=== PATIENT | female | born 1945 | race Caucasian/White ===

== ENCOUNTER 2018-08-03 08:32 | Day surgery (SDC) | payer MEDICARE ==
[~2018-08-03] VITALS: Ht 154.9 cm; Wt 49.4 kg
[~2018-08-03 08:32] MED LIST: ACETAMINOPHEN 325 MG TAB PO PRN; BALANCED SALT IRRIGATION SOLUTION 500ML BAG (FOR OR EYE MACHINE) As Ordered ONE; CEFUROXIME 1MG/0.1ML INTRACAMERAL INJ As Ordered ONE; CYCLOPENTOLATE 2% OPHTH SOLN 2ML BTL OD ONE; HEALON DUET PRO(HEALON 10MG/ML 0.55ML & HEALON ENDOCOAT 30MG/ML 0.85ML) As Ordered ONE; LIDOCAINE 1% SDV 5 ML VIAL As Ordered ONE; LIDOCAINE 3.5 % 1ML OPHTH TOPICAL GEL OU ONE; MIDAZOLAM INJ 2 MG/2 ML VIAL (J2250) As Ordered ONE; MULTCAP PO; OCUVTAB4 PO; OFLOXACIN 0.3 % (OCUFLOX) OPTH SOL 5ML OD ONE; PHENYLEPHRINE 2.5% OPHTH SOL 2ML OD ONE; PHENYLEPHRINE HCL 10 % OPHTH. SOL 5ML OD PRN; POVIDONE-IODINE 5% OPHTH PREP SOL 30ML As Ordered ONE; PRAV20TA2 PO; PROPARACAINE 0.5% OPHTH SOL 15ML OD PRN; RANI150T PO; TROPICAMIDE 1% OPHTH SOLN 2ML OD ONE; VITA500T PO; fentaNYL 100 MCG/2 ML INJECTION (J3010) As Ordered ONE; oscal PO
[2018-08-03] MEDS ORDERED: PROPARACAINE 0.5% OPHTH SOL 15ML As Ordered ONE (10:27)
[2018-08-03 10:30] VITALS: BP 144/66
[2018-08-03] MEDS ORDERED: AcetaZOLAMIDE 500 MG ER CAP As Ordered ONE (10:30)
[2018-08-03] MEDS ORDERED: ACETAMINOPHEN TAB 650MG DOSE (2X325MG) PO PRN (10:45)
[2018-08-03] MEDS ORDERED: KETOROLAC 0.5% OPHTH SOLN OD ONE (10:45)
[2018-08-03] MEDS ORDERED: ONDANSETRON 4MG/2ML VIAL (J2405) IV PRN (10:45)
[2018-08-03] MEDS ORDERED: AcetaZOLAMIDE 500 MG ER CAP PO ONE (10:45)
[2018-08-03] MEDS ORDERED: TRIMETHOBENZAMIDE 300 MG CAP PO PRN (10:45)
--- NOTE | 2018-08-03 14:19 | RO ---
DATE OF PROCEDURE: 08/03/2018 PREPROCEDURE DIAGNOSES: Age-related nuclear cataracts and astigmatism right eye. POSTPROCEDURE DIAGNOSES: Age-related nuclear cataracts and astigmatism right eye. PROCEDURE: Femtosecond cataract extraction with posterior chamber intraocular lens. The lens used was AU00T0, 25.0 diopter. SURGEON: Rosemary Chapa MD SPORTSPERSONS: ANESTHESIA: Topical sedation. DESCRIPTION OF PROCEDURE: The patient was brought to the operating room and put under the femtosecond laser. A lid speculum was placed between the lids, and the laser was lowered on. Docking was achieved with good suction. The laser procedure was performed with no difficulty. The laser was then removed from the eye, and the lid speculum was removed. The laser was moved over to the operating microscope and prepped and draped in the usual fashion. A lid speculum was placed between the lids. The eye was fixated. The side port incision was opened up with a spatula. 1% nonpreservative lidocaine was instilled; then, viscoelastic was instilled. The main incision was then opened with the spatula. The capsulorrhexis was removed from the eye with the Utrata forceps. The lens was then hydrodissected, and a phacoemulsification unit was used to make a groove in the nucleus and one meridian. The nucleus was cracked into four quadrants, and then each quadrant was removed with the phacoemulsification unit. Any remaining cortex was removed with the irrigation and aspiration (I and A) unit. The capsular bag was refilled with viscoelastic. A posterior chamber intraocular lens was placed in the capsular bag. The remaining viscoelastic was removed. The wound was hydrated. Miochol and cefuroxime were instilled. The wound was watertight. The patient tolerated the procedure well and went to the recovery room in stable condition.
== END 2018-08-03 11:07 | disposition home or self-care (01) ==
LOC: M SDC 08:32
PROVIDERS: ATTEND Ophthalmology
DX: H25.11 Age-related nuclear cataract, right eye (principal); H52.201 Unspecified astigmatism, right eye; E78.5 Hyperlipidemia, unspecified; K21.9 Gastro-esophageal reflux disease without esophagitis; Z79.899 Other long term (current) drug therapy; Z88.8 Allergy status to other drugs, medicaments and biological substances
CPT/HCPCS: 66984; 92015; J2250; J3010; V2632

== ENCOUNTER 2018-08-10 08:00 | Day surgery (SDC) | payer MEDICARE ==
[~2018-08-10] VITALS: Ht 154.9 cm; Wt 51.2 kg
[~2018-08-10 08:00] MED LIST changes: -CYCLOPENTOLATE 2% OPHTH SOLN 2ML BTL OD ONE; +CYCLOPENTOLATE 2% OPHTH SOLN 2ML BTL OS ONE; -OFLOXACIN 0.3 % (OCUFLOX) OPTH SOL 5ML OD ONE; +OFLOXACIN 0.3 % (OCUFLOX) OPTH SOL 5ML OS ONE; -PHENYLEPHRINE 2.5% OPHTH SOL 2ML OD ONE; +PHENYLEPHRINE 2.5% OPHTH SOL 2ML OS ONE; -PHENYLEPHRINE HCL 10 % OPHTH. SOL 5ML OD PRN; +PHENYLEPHRINE HCL 10 % OPHTH. SOL 5ML OS PRN; -PROPARACAINE 0.5% OPHTH SOL 15ML OD PRN; +PROPARACAINE 0.5% OPHTH SOL 15ML OS PRN; -TROPICAMIDE 1% OPHTH SOLN 2ML OD ONE; +TROPICAMIDE 1% OPHTH SOLN 2ML OS ONE
[2018-08-10] MEDS ORDERED: AcetaZOLAMIDE 500 MG ER CAP As Ordered ONE (09:38)
[2018-08-10 09:45] VITALS: BP 118/68
[2018-08-10] MEDS ORDERED: KETOROLAC 0.5% OPHTH SOLN OS ONE (09:45)
[2018-08-10] MEDS ORDERED: TRIMETHOBENZAMIDE 300 MG CAP PO PRN (09:45)
[2018-08-10] MEDS ORDERED: AcetaZOLAMIDE 500 MG ER CAP PO ONE (09:45)
[2018-08-10] MEDS ORDERED: ACETAMINOPHEN TAB 650MG DOSE (2X325MG) PO PRN (10:00)
--- NOTE | 2018-08-10 12:47 | RO ---
DATE OF PROCEDURE: 08/10/2018 PREOPERATIVE DIAGNOSIS: Age-related nuclear cataract left eye. POSTOPERATIVE DIAGNOSIS: Age-related nuclear cataract left eye. PROCEDURE PERFORMED: Femtosecond cataract extraction with posterior chamber intraocular lens implantation and Optiwave Refractive Analysis (ORA). Lens used was an AU00T0, 25.0 diopter. SURGEON: Rosemary Chapa MD WATER SERVICE DISPATCHER: ANESTHESIA: Topical with sedation. DESCRIPTION OF PROCEDURE: Patient was prepped and draped in usual fashion. A lid speculum was placed between the lids. The eye was fixated. A stab incision was made into the anterior chamber. 1% nonpreserved lidocaine was instilled. Then viscoelastic was instilled. The main incision was then opened with the incision human resource internship, and the anterior capsulorrhexis was removed, was performed by the laser. The lens was then rocked to remove any gas from behind it, and then it was freely movable in the capsular bag. The phacoemulsification unit was used to groove the nucleus in two meridians. The nucleus was cracked into four quadrants. Each quadrant was removed with the phacoemulsification unit. Any remaining cortex was removed with the irrigation and aspiration (I and A) unit. The capsular bag was refilled with viscoelastic, and then the intraocular pressure measured and found to be adequate for ORA. The ORA was lowered into place, focused on the apex of the cornea, and aligned to the patient. Readings were made, and an appropriate intraocular lens was chosen from the data generated by the ORA. The lens was then injected into the eye with its correction officer supervisor and into the capsular bag. It was in great position. Any remaining viscoelastic was removed with the I and A unit. The wound was then hydrated, and balanced salt solution (BSS) and cefuroxime were instilled. Patient tolerated this procedure well and went to recovery room in stable condition.
== END 2018-08-10 10:13 | disposition home or self-care (01) ==
LOC: M SDC 08:00
PROVIDERS: ATTEND Ophthalmology
DX: H25.12 Age-related nuclear cataract, left eye (principal); E78.5 Hyperlipidemia, unspecified; K21.9 Gastro-esophageal reflux disease without esophagitis; Z79.899 Other long term (current) drug therapy; Z88.8 Allergy status to other drugs, medicaments and biological substances
CPT/HCPCS: 66984; 92015; J2250; J3010; V2632

== ENCOUNTER → 2018-09-06 | Outpatient (CLI) | payer MEDICARE ==
[~2018-09-06] MED LIST changes: -ACETAMINOPHEN 325 MG TAB PO PRN; -BALANCED SALT IRRIGATION SOLUTION 500ML BAG (FOR OR EYE MACHINE) As Ordered ONE; -CEFUROXIME 1MG/0.1ML INTRACAMERAL INJ As Ordered ONE; -CYCLOPENTOLATE 2% OPHTH SOLN 2ML BTL OS ONE; -HEALON DUET PRO(HEALON 10MG/ML 0.55ML & HEALON ENDOCOAT 30MG/ML 0.85ML) As Ordered ONE; -LIDOCAINE 1% SDV 5 ML VIAL As Ordered ONE; -LIDOCAINE 3.5 % 1ML OPHTH TOPICAL GEL OU ONE; -MIDAZOLAM INJ 2 MG/2 ML VIAL (J2250) As Ordered ONE; -OFLOXACIN 0.3 % (OCUFLOX) OPTH SOL 5ML OS ONE; -PHENYLEPHRINE 2.5% OPHTH SOL 2ML OS ONE; -PHENYLEPHRINE HCL 10 % OPHTH. SOL 5ML OS PRN; -POVIDONE-IODINE 5% OPHTH PREP SOL 30ML As Ordered ONE; -PROPARACAINE 0.5% OPHTH SOL 15ML OS PRN; -TROPICAMIDE 1% OPHTH SOLN 2ML OS ONE; -fentaNYL 100 MCG/2 ML INJECTION (J3010) As Ordered ONE
--- NOTE | 2018-09-06 09:16 | REP ---
MAXILLOFACIAL CT WITHOUT CONTRAST: HISTORY: Chronic pansinusitis. The sinuses are clear. The ostiomeatal units are patent. The middle and inferior nasal turbinates are partially paradoxical. There is rashmi bullosa of the middle nasal turbinates. There is minimal deviation of the nasal septum to the right. The cribriform plate, medial larson of the orbits and optic canals are intact. There is aeration of the anterior clinoid processes. The carotid canals form a segment of the posterolateral larson of the sphenoid sinus. The sphenoid sinus septa insert into the internal carotid canals larson. IMPRESSION: There is no acute or chronic sinusitis. Electronically Signed by Babak Davenport MD 09/06/2018 09:46 A
== END ==
LOC: M RAD 08:29
PROVIDERS: ATTEND Otolaryngology
DX: J30.9 Allergic rhinitis, unspecified (principal)

== ENCOUNTER 2023-11-18 08:33 | Day surgery (SDC) | payer MEDICARE ==
[~2023-11-18] VITALS: Ht 154.9 cm; Wt 54.2 kg
[~2023-11-18 08:33] MED LIST changes: +AIRB1CHW3 PO; +CALTTAB6 PO; +LIDOCAINE 2% 100MG/5ML SDV (FOR ANES.) As Ordered ONE; +MIDAZOLAM INJ 2MG/2ML VIAL As Ordered ONE; +OMEP1CAP73 PO; +ONDANSETRON 4MG 2ML VIAL As Ordered ONE; +PRES10CA2 PO; +ROCURONIUM BROMIDE 50MG/5ML VIAL As Ordered ONE; +VITA-243 PO; -VITA500T PO; +fentaNYL 100 MCG/2 ML INJECTION As Ordered ONE; +propofoL 200 MG/20 ML VIAL As Ordered ONE
[2023-11-18] MEDS ORDERED: LR 1,000 ML IV SCH (08:40)
[2023-11-18] MEDS: ceFAZolin SOD 2 GM in IV 1 EA IV ONE (10:13)
[2023-11-18] MEDS: metroNIDAZOLE 500 MG in IV 1 EA IV ONE (10:20)
[2023-11-18] MEDS ORDERED: ACETAMINOPHEN 1000MG 100ML IV BAG As Ordered ONE (10:28)
[2023-11-18] MEDS ORDERED: GLYCOPYRROLATE INJ 0.2 MG/ML 2 ML VIAL As Ordered ONE (10:31)
[2023-11-18] MEDS ORDERED: KETOROLAC 60MG 2ML VIAL As Ordered ONE (10:35)
[2023-11-18] MEDS ORDERED: SUGAMMADEX SODIUM 500 MG/5 ML VIAL (BRIDION) As Ordered ONE (10:35)
[2023-11-18] MEDS ORDERED: fentaNYL 100 MCG/2 ML INJECTION IV PRN (11:05)
[2023-11-18] MEDS ORDERED: NORCO, ANEXSIA 5/325MG TABLET (HYDROcodone/ACETAMINOPHEN) PO PRN (11:30)
[2023-11-18] MEDS: oxyCODONE 5MG TAB PO PRN (11:33)
[2023-11-18] MEDS ORDERED: MORPHINE 2 MG/ML 1ML VIAL IV PRN (11:40)
[2023-11-18] MEDS: ONDANSETRON 4MG 2ML VIAL IV PRN (11:45)
[2023-11-18 13:45] VITALS: BP 133/71; TEMP 97; O2SAT 97
== END 2023-11-18 13:50 | disposition home or self-care (01) ==
LOC: M SDC 08:33
PROVIDERS: ATTEND Surgery
DX: K36 Other appendicitis (principal); E78.00 Pure hypercholesterolemia, unspecified; K21.9 Gastro-esophageal reflux disease without esophagitis; Z79.899 Other long term (current) drug therapy; Z88.6 Allergy status to analgesic agent; Z87.11 Personal history of peptic ulcer disease
CPT/HCPCS: 44970; 88304; J0131; J0665; J0690; J1100; J1596; J1836; J1885; J2250; J2405; J3010